=== PATIENT | female | born 2000 | race Caucasian/White ===

== ENCOUNTER 2022-12-29 18:04 | Emergency (ER) | payer MEDICAID ==
[~2022-12-29] VITALS: Ht 154.9 cm; Wt 46.7 kg
[2022-12-29 18:04] VITALS: BP 120/71; PULSE 99; RESP 18; TEMP 97.8; O2SAT 97
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
[2022-12-29 18:12] VITALS: BP 120/71; PULSE 99; RESP 18; TEMP 98; O2SAT 97
[2022-12-29] MEDS ORDERED: ULTRAM PO STA (18:14)
[2022-12-29] MEDS ORDERED: MOTRIN PO STA (18:14)
[2022-12-29] MEDS ORDERED: MOTRIN ONE (18:17)
[2022-12-29] MEDS ORDERED: ULTRAM ONE (18:18)
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
== END 2022-12-29 18:41 | disposition home or self-care (01) ==
LOC: ER 18:04
DX: S60.221A Contusion of right hand, initial encounter (principal); W22.01XA Walked into wall, initial encounter; Y93.89 Activity, other specified; Y92.89 Other specified places as the place of occurrence of the external cause; Y99.8 Other external cause status
CPT/HCPCS: 99283; 73130-RT

== ENCOUNTER 2023-05-03 21:03 | Emergency (ER) | payer OTHER ==
[~2023-05-03] VITALS: Ht 154.9 cm; Wt 47.6 kg
[2023-05-03 21:42] VITALS: BP 155/97; PULSE 134; RESP 18; TEMP 98; O2SAT 99
[2023-05-03] MEDS ORDERED: MORPHINE SULFATE IV STA (21:49)
[2023-05-03] MEDS ORDERED: ZOFRAN IV PRN (22:00)
[2023-05-03] MEDS ORDERED: NS 1000ML 1,000 ML IV ONE (22:00)
== END 2023-05-03 22:41 | disposition home or self-care (01) ==
LOC: ER 21:03
DX: A08.4 Viral intestinal infection, unspecified (principal); Z88.2 Allergy status to sulfonamides
CPT/HCPCS: 96361; 96374; 96375; 99284

== ENCOUNTER 2023-09-24 16:06 | Emergency (ER) | payer OTHER ==
[~2023-09-24] VITALS: Ht 157.5 cm; Wt 54.4 kg
[2023-09-24 16:13] VITALS: BP 130/83; PULSE 81; RESP 18; TEMP 97.8; O2SAT 100
[2023-09-24 17:25] VITALS: BP 120/71; PULSE 72; RESP 18; TEMP 97.8; O2SAT 100
[2023-09-24 18:16] VITALS: BP 104/66; PULSE 88; RESP 18; TEMP 97.8; O2SAT 100
== END 2023-09-24 18:18 | disposition home or self-care (01) ==
LOC: ER 16:06
DX: R07.81 Pleurodynia (principal); Z88.2 Allergy status to sulfonamides; Z90.49 Acquired absence of other specified parts of digestive tract
CPT/HCPCS: 81025; 99284; 71101-RT